=== PATIENT | male | born 1990 | race Hispanic/Latino ===

== ENCOUNTER 2020-03-20 16:22 | Emergency (ER) | payer OTHER ==
[2020-03-20] MEDS ORDERED: IBUPROFEN 600 MG TABLET ONE (17:41)
== END 2020-03-20 18:21 | disposition home or self-care (01) ==
LOC: EDH 16:22
DX: M54.5 Low back pain (principal); M54.6 Pain in thoracic spine; Z72.0 Tobacco use; V49.59XA Passenger injured in collision with other motor vehicles in traffic accident, initial encounter; Y93.89 Activity, other specified; Y92.89 Other specified places as the place of occurrence of the external cause; Y99.8 Other external cause status
CPT/HCPCS: 71045; 72100

== ENCOUNTER 2022-08-16 19:26 | Emergency (ER) | payer OTHER | END 2022-08-16 19:44 | disposition left against medical advice (07) | LOC: EDH 19:26 | DX: R06.02 Shortness of breath (principal); I10 Essential (primary) hypertension; R42 Dizziness and giddiness; Z53.21 Procedure and treatment not carried out due to patient leaving prior to being seen by health care provider ==

== ENCOUNTER 2022-10-26 04:59 | Emergency (ER) | payer OTHER ==
[~2022-10-26] VITALS: Ht 162.6 cm; Wt 75.3 kg
[2022-10-26 05:23] LABS: APPEARANCE,URINE CLEAR (CLEAR); BILIRUBIN,URINE NEGATIVE (NEGATIVE); COLOR,URINE LIGHT-YELLOW (YELLOW); GLUCOSE, URINE (UA) 300 mg/dL (NEGATIVE); KETONES,URINE 5 mg/dL (NEGATIVE); LEUKOCYTE ESTERASE ,URINE NEGATIVE Leu/uL (NEGATIVE); NITRATE,URINE NEGATIVE (NEGATIVE); OCCULT BLOOD,URINE SMALL (NEGATIVE); PROTEIN,URINE 10 mg/dL (NEGATIVE); UROBILINOGEN,URINE 0.2 mg/dL (0.2-1.0)
[2022-10-26 05:25] LABS: MUCUS,URINE FEW LPF (None Seen); WBC,URINE 0-1 /HPF (0-1)
[2022-10-26] MEDS ORDERED: 0.9%NACL 1000ML 1,000 ML IV ONE (05:30)
[2022-10-26 06:12] LABS: BASOPHILS % (AUTO) 0.1 % (0.0-5.0); HEMATOCRIT 43.1 % (42-54); LYMPHOCYTES % (AUTO) 6.9 % (21.0-51.0); MEAN CORPUSCULAR HEMOGLOBIN 33.8 pg (27.0-33.0); MEAN CORPUSCULAR HGB CONC 33.4 g/dL (32.0-36.0); MEAN CORPUSCULAR VOLUME 101.2 fL (79-99); MONOCYTES % (AUTO) 2.3 % (3.0-13.0); NEUTROPHILS % (AUTO) 90.2 % (40.0-77.0); PLATELET COUNT (AUTO) 148 K/uL (130-400); RED BLOOD CELL COUNT(AUTO) 4.26 MIL/uL (4.50-6.20); RED CELL DISTRIBUTION WIDTH 12.9 % (11.0-15.5); WHITE BLOOD COUNT (AUTO) 10.4 K/uL (4.8-10.8)
[2022-10-26 06:27] LABS: CREATININE 0.7 mg/dL (0.5-1.5); POTASSIUM 3.6 mmol/L (3.5-5.1); TOTAL PROTEIN, SERUM 7.3 g/dL (6.0-8.3)
[2022-10-26 11:03] VITALS: BP 114/56
[2022-10-26] MEDS ORDERED: IBUP-2070 PO (12:31)
[2022-10-26] MEDS ORDERED: DOXY-252 PO (12:31)
== END 2022-10-26 12:50 | disposition home or self-care (01) ==
LOC: EDH 04:59
DX: A01.00 Typhoid fever, unspecified (principal); Z98.890 Other specified postprocedural states; Z20.822 Contact with and (suspected) exposure to COVID-19
CPT/HCPCS: 99284; 96360; 71045; 87635; 80053; 85025; 87804 ×2; 86000; 81001; 36415; C9803

== ENCOUNTER 2024-10-12 14:55 | Emergency (ER) | payer OTHER ==
[~2024-10-12] VITALS: Ht 162.6 cm; Wt 60.3 kg
[~2024-10-12 14:55] MED LIST: DOXY-252 PO; IBUP-2070 PO
[2024-10-12] MEDS: 0.9%NACL 1000ML 1,000 ML IV ONE (15:27)
[2024-10-12 15:29] LABS: BASOPHILS # (AUTO) 0.02 K/uL (0.00-0.20); BASOPHILS % (AUTO) 0.1 % (0.0-5.0); HEMATOCRIT 38.2 % (42-54); IMMATURE GRANULOCYTE ABSOLUTE 0.06 K/uL (0-1); LYMPHOCYTES # (AUTO) 1.3 K/uL (1.0-4.8); LYMPHOCYTES % (AUTO) 8.2 % (21.0-51.0); MEAN CORPUSCULAR HEMOGLOBIN 33.2 pg (27.0-33.0); MEAN CORPUSCULAR HGB CONC 33.8 g/dL (32.0-36.0); MEAN CORPUSCULAR VOLUME 98.2 fL (79-99); MONOCYTES # (AUTO) 1.1 K/uL (0.1-1.0); MONOCYTES % (AUTO) 7.4 % (3.0-13.0); NEUTROPHILS # (AUTO) 12.9 K/uL (1.8-7.7); NEUTROPHILS % (AUTO) 83.9 % (40.0-77.0); PLATELET COUNT (AUTO) 107 K/uL (130-400); RED BLOOD CELL COUNT(AUTO) 3.89 MIL/uL (4.50-6.20); RED CELL DISTRIBUTION WIDTH 14.1 % (11.0-15.5); WHITE BLOOD COUNT (AUTO) 15.3 K/uL (4.8-10.8)
[2024-10-12 15:36] LABS: CREATININE 0.8 mg/dL (0.5-1.3); POTASSIUM 3.5 mmol/L (3.5-5.1)
[2024-10-12 15:37] LABS: INR 1.36 (0.85-1.15)
[2024-10-12 15:38] LABS: PARTIAL THROMBOPLASTIN TIME 31.3 SEC (26.3-35.5)
[2024-10-12 15:40] LABS: ALBUMIN 3.4 g/dL (3.5-5.0); BILIRUBIN,DIRECT 0.2 mg/dL (0.0-0.3); BILIRUBIN,TOTAL 0.5 mg/dL (0.2-1.0); TOTAL PROTEIN, SERUM 7.2 g/dL (6.0-8.3)
--- NOTE | 2024-10-12 15:44 | HMCIMG ---
Exam Type: US ABDOMINAL RUQ\E\LTD Clinical Information: RUQ bd pain r/o acute choley Comparison: None Findings: The liver shows coarse echotexture and this is suggestive of chronic liver disease.. The liver measures less than 16 cm in length. Doppler evaluation shows patent portal and hepatic veins. The gallbladder shows no significant abnormalities. Specifically, no calculi are seen. The gallbladder wall thickness is 4 mm. This is slightly thickened possibly due to liver dysfunction. No bile duct dilatation is noted. The common bile duct measures 4 mm. The right kidney measures 9.6 x 4 cm. The right kidney is normal in size and echogenicity. No hydronephrosis or renal calculi are seen. There are no renal masses. The pancreas is suboptimally visualized. IMPRESSION: Findings serial axial chronic liver disease.
[2024-10-12 15:46] LABS: APPEARANCE,URINE CLEAR (CLEAR); BILIRUBIN,URINE NEGATIVE (NEGATIVE); COLOR,URINE YELLOW (YELLOW); GLUCOSE, URINE (UA) NEGATIVE (NEGATIVE); KETONES,URINE NEGATIVE (NEGATIVE); LEUKOCYTE ESTERASE ,URINE NEGATIVE Leu/uL (NEGATIVE); NITRATE,URINE NEGATIVE (NEGATIVE); OCCULT BLOOD,URINE SMALL (NEGATIVE); PH,URINE 6.5 (5.0-8.0); PROTEIN,URINE 20 mg/dL (NEGATIVE); UROBILINOGEN,URINE 6 mg/dL (0.2-1.0)
[2024-10-12 15:48] LABS: ADD UA MICROSCOPIC YES
[2024-10-12 15:49] LABS: MUCUS,URINE RARE LPF (None Seen); RBC,URINE 26-50 /HPF (0-1); SQUAMOUS EPITHELIAL CELL,UR RARE /HPF (0-2)
[2024-10-12] MEDS: morPHINE 2 MG SYG IVP ONE (16:11)
[2024-10-12] MEDS: ondanSETRON 4MG INJ IVP ONE (16:11)
[2024-10-12] MEDS: ketOROlac 15MG/ML VIAL (15MG/ML) IV ONE (17:23)
--- NOTE | 2024-10-12 17:31 | ERN ---
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 The patient was recently started on penicillamine Allergies: Coded Allergies: No Known Drug Allergies (Unverified Allergy, Unknown, 08/16/22) Home Meds Active Scripts Ibuprofen (Ibuprofen) 600 Mg Tablet, 600 MG PO Q6H PRN for PAIN for 7 Days, #30 TAB Prov:ARA JORDAN MD 10/26/22 Doxycycline Hyclate (Doxycycline Hyclate) 100 Mg Tablet.dr, 100 MG PO BID for 10 Days, #20 TAB Prov:ARA JORDAN MD 10/26/22 Past Medical History Past Medical History: No Pertinent History Medical History Other: Back pain, jonathan's disease Past Surgical History: None Surgical History Other: DENIES Additional History Comments: Patient states she has 3 herniated disks Family History Family History: Negative Social History Social History: Smokers, Lives with family ROS Dictation CONSTITUTIONAL: Negative except for HPI HEAD/FACE: Negative except for HPI EENT: Negative except for HPI RESPIRATORY: Negative except for HPI GASTROINTESTINAL/ABDOMINAL: Negative except for HPI GENITOURINARY: Negative except for HPI MUSCULOSKELETAL: Negative except for HPI INTEGUMENTARY: Negative except for HPI NEUROLOGICAL/PSYCH: Negative except for HPI HEMATOLOGIC/LYMPHATIC: Negative except for HPI All Systems Negative, Except as noted above. 13 point review of systems assessed and all negative except for above. Physical Exam Physical Exam Dictation Vital Signs reviewed General Appearance: Alert, oriented x 3, no acute distress, well developed, nourished. Head and Face: non-traumatic. Eyes: PERRL, pink conjunctivas, eyelid no trauma, anterior chamber with arcus senilis. Ears: Pinnas intact and no signs of trauma or erythema ear canals clear and no discharge TM no erythema Nose: No discharge, no bleeding. Oropharynx: Mouth normal, tongue pink, pharynx clear,no erythema, tonsils no exudates, no abscesses noted, mucous membrane moist Neck: Supple, non-tender, no thyromegaly, no masses, no JVD, no bruits Breast:Deferred Chest:No tenderness, no crepitus, no paradoxical movement, no retractions Lungs:Clear, well-ventilated, symmetric, no rales, no wheezing, no rhonchi, no stridor, good breath sounds bilaterally Heart: Regular rate, regular rhythm, no murmur, no gallops Vascular: no peripheral edema, Abdomen: Soft, positive bowel sounds, nondistended, no guarding, nontender, no rebound, no masses no hepatomegaly, no splenomegaly, no Ford's sign, no hernias. Rectal: Deferred Genital: Deferred Neurological: Normal speech, motor function intact, sensory function intact Musculoskeletal: Neck nontender, full range of motion, back nontender, full ran ge of motion, Extremities: nontender, full range of motion Skin: Color pink, dry, no turgor, no rash, no lacerations, no abrasions, no contusions. Lymphatic: Deferred Results Laboratory and Microbiology Lab and Micro Result Laboratory Tests Test 10/12/24 15:10 White Blood Count 15.3 K/uL (4.8-10.8) H Red Blood Count 3.89 MIL/uL (4.50-6.20) L Hemoglobin 12.9 g/dL (14.0-18.0) L Hematocrit 38.2 % (42-54) L Mean Corpuscular Volume 98.2 fL (79-99) Mean Corpuscular Hemoglobin 33.2 pg (27.0-33.0) H Mean Corpuscular Hemoglobin Concent 33.8 g/dL (32.0-36.0) Red Cell Distribution Width 14.1 % (11.0-15.5) Platelet Count 107 K/uL (130-400) L Mean Platelet Volume 10.9 fL (7.5-10.5) H Immature Granulocyte % (Auto) 0.4 % (0-1) Neutrophils (%) (Auto) 83.9 % (40.0-77.0) H Lymphocytes (%) (Auto) 8.2 % (21.0-51.0) L Monocytes (%) (Auto) 7.4 % (3.0-13.0) Eosinophils (%) (Auto) 0.0 % (0.0-8.0) Basophils (%) (Auto) 0.1 % (0.0-5.0) Neutrophils # (Auto) 12.9 K/uL (1.8-7.7) H Lymphocytes # (Auto) 1.3 K/uL (1.0-4.8) Monocytes # (Auto) 1.1 K/uL (0.1-1.0) H Eosinophils # (Auto) 0.00 K/uL (0.00-0.70) Basophils # (Auto) 0.02 K/uL (0.00-0.20) Absolute Immature Granulocyte (auto 0.06 K/uL (0-1) Nucleated Red Blood Cells 0.0 % (0.0-0.19) White Cell Morphology Comment See comments Prothrombin Time 14.0 SEC (9.6-11.6) H Prothromb Time International Ratio 1.36 (0.85-1.15) H Activated Partial Thromboplast Time 31.3 SEC (26.3-35.5) Urine Color YELLOW (YELLOW) Urine Appearance CLEAR (CLEAR) Urine pH 6.5 (5.0-8.0) Urine Specific [place] 1.027 (1.001-1.031) Urine Protein 20 mg/dL (NEGATIVE) H Urine Glucose (UA) NEGATIVE mg/dL (NEGATIVE) Urine Ketones NEGATIVE mg/dL (NEGATIVE) Urine Occult Blood SMALL (NEGATIVE) H Urine Nitrate NEGATIVE (NEGATIVE) Urine Bilirubin NEGATIVE mg/dL (NEGATIVE) Urine Urobilinogen 6 mg/dL (0.2-1.0) H Urine Leukocyte Esterase NEGATIVE Leni/uL Urine RBC 26-50 /HPF (0-1) H Urine WBC 2-5 /HPF (0-1) H Urine Squamous Epithelial Cells RARE /HPF (0-2) Urine Bacteria None /HPF (None Seen) Sodium Level 137 mmol/L (136-145) Potassium Level 3.5 mmol/L (3.5-5.1) Chloride Level 103 mmol/L (101-111) Carbon Dioxide Level 29 mmol/L (21-32) Blood Urea Nitrogen 11 mg/dL (7-18) Creatinine 0.8 mg/dL (0.5-1.3) Glomerular Filtration Rate Calc 118 mL/min (>90) Random Glucose 86 mg/dL (70-105) Total Calcium 9.0 mg/dL (8.5-10.1) Total Bilirubin 0.5 mg/dL (0.2-1.0) Direct Bilirubin 0.2 mg/dL (0.0-0.3) Aspartate Amino Transf (AST/SGOT) 36 U/L (10-37) Alanine Aminotransferase (ALT/SGPT) 53 U/L (12-78) Alkaline Phosphatase 110 U/L (50-136) Total Protein 7.2 g/dL (6.0-8.3) Albumin 3.4 g/dL (3.5-5.0) L Lipase 32 U/L (16-77) ED Course Orders Procedure Category Date Status Time Cbc With Differential LAB 10/12/24 Complete 15:11 Basic Metabolic Panel LAB 10/12/24 Complete 15:11 Hepatic Function Panel LAB 10/12/24 Complete 15:11 Lipase LAB 10/12/24 Complete 15:11 Pt And Ptt LAB 10/12/24 Complete 15:11 Us Abdominal Ruq\Ltd US 10/12/24 Resulted 15:11 0.9%Nacl 1000ml (Ns PHA 10/12/24 Complete 1000ml) 15:30 Urinalysis Profile LAB 10/12/24 Complete 15:33 Morphine 2mg Syg PHA 10/12/24 Complete (Morphine 2mg Syg) 16:00 Ondansetron 4mg Inj PHA 10/12/24 Complete (Zofran 4mg Inj) 16:00 Ketorolac PHA 10/12/24 Complete Tromethamine 15mg/Ml 17:00 Current Medications Medications (Trade) Dose Ordered Sig/Rodger Route PRN Reason Start Time Stop Time Status Last Admin Dose Admin Ketorolac Tromethamine (toRADol) 15 mg ONCE ONCE IV 10/12/24 17:00 10/12/24 17:02 DC 10/12/24 17:23 Morphine Sulfate (morPHINE 2MG SYG) 2 mg ONCE ONCE IVP 10/12/24 16:00 10/12/24 16:01 DC 10/12/24 16:11 Ondansetron HCl (zoFRAN 4MG INJ) 4 mg ONCE ONCE IVP 10/12/24 16:00 10/12/24 16:01 DC 10/12/24 16:11 Sodium Chloride 1,000 ml @ 0 mls/hr ONCE ONCE IV 10/12/24 15:30 10/12/24 15:31 DC 10/12/24 15:27 Vital Signs Date Time Temp Pulse Resp B/P (MAP) Pulse Ox O2 Delivery O2 Flow Rate FiO2 10/12/24 15:20 98.6 62 22 82/39 98 Room Air* 0 21 10/12/24 14:56 97.7 70 18 79/64 96 Room Air 0 DX & DISP Disposition: Discharge Departure Impression: Primary Impression: Right upper quadrant abdominal pain Additional Impression: Wilsons disease Condition: Stable Referrals: SELF,REFERRAL (PCP) I have reviewed the case, and I agree with, Diagnosis and Plan I performed the substantive portion of the visit. I have reviewed and personally made and approve the management plan that is documented in the note by myself or the JESUS. I acknowledge for responsibility for the patient's management plan. KEILA MENDENHALL Oct 12, 2024 17:31
[2024-10-12 17:42] VITALS: BP 105/67; PULSE 60; RESP 16; TEMP 98.1; O2SAT 98
== END 2024-10-12 17:54 | disposition home or self-care (01) ==
LOC: EDH 14:55
DX: R10.11 Right upper quadrant pain (principal); E83.01 Wilson's disease; F17.200 Nicotine dependence, unspecified, uncomplicated
CPT/HCPCS: 99285; 96374; 76705; 96361; 96375; 80076; 80048; 83690; 85025; 85610; 85730; 81001; 36415; J1885; J2270; J7030; J2405

== ENCOUNTER 2024-10-26 18:24 | Emergency (ER) | payer BC, OTHER ==
[~2024-10-26] VITALS: Ht 162.6 cm; Wt 60.3 kg
--- NOTE | 2024-10-26 18:39 | ERN ---
ED Note History of Present Illness Stated Complaint: FEVER, CONGESTION X 4 DAYS Chief Complaint: Fever Time Seen by MD: 18:37 Dictation: PATIENT IS A 34-YEAR-OLD MALE COMING IN TODAY WITH COMPLAINTS OF FEVER CHILLS RIGHT LOWER QUADRANT PAIN WITH NAUSEA FOR 3-4 DAYS. HE ALSO STATES HE HAS HAD A COUGH NONPRODUCTIVE AND HAS NOT FELT GOOD. NO VOMITING NO DIARRHEA. 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 PATIENT TOOK TAMIFLU LAST NIGHT FOR HIS FEVER, HAS TAKEN NOTHING TODAY FOR THE FEVER Allergies: Coded Allergies: No Known Drug Allergies (Unverified Allergy, Unknown, 08/16/22) Home Meds Active Scripts Albuterol Sulfate (Ventolin Hfa/Proventil Hfa/Proair Hfa) 90 Mcg Puff, 2 PUFF IH Q4H for WHEEZING, #1 INHALER 0 Refills Prov:KRISTOPHER ERNANDEZ NP 10/26/24 Levofloxacin (Levaquin 750Mg Tabs) 750 Mg Tablet, 1 TAB PO DAILY for 10 Days, #10 TAB 0 Refills Prov:KRISTOPHER ERNANDEZ NP 10/26/24 Ibuprofen (Ibuprofen) 600 Mg Tablet, 600 MG PO Q6H PRN for PAIN for 7 Days, #30 TAB Prov:ARA JORDAN MD 10/26/22 Doxycycline Hyclate (Doxycycline Hyclate) 100 Mg Tablet.dr, 100 MG PO BID for 10 Days, #20 TAB Prov:ARA JORDAN MD 10/26/22 Past Medical History Past Medical History: Other Additional Past Medical Hx: Back pain, tyron's disease Surgical History: None Surgical History Other: DENIES Additional History Comments: Patient states she has 3 herniated disks Family History: Negative Social History: Smokers, Lives with family RN Note Reviewed/Agreed w/PFSH: Yes Review of System Dictation CONSTITUTIONAL: NEGATIVE EXCEPT FOR HPI FEVER CHILLS HEAD/FACE: NEGATIVE EXCEPT FOR HPI EENT: NEGATIVE EXCEPT FOR HPI SORE THROAT RESPIRATORY: NEGATIVE EXCEPT FOR HPI COUGH GASTROINTESTINAL/ABDOMINAL: NEGATIVE EXCEPT FOR HPI RIGHT LOWER QUADRANT PAIN WITH NAUSEA GENITOURINARY: NEGATIVE EXCEPT FOR HPI MUSCULOSKELETAL: NEGATIVE EXCEPT FOR HPI INTEGUMENTARY: NEGATIVE EXCEPT FOR HPI NEUROLOGICAL/PSYCH: NEGATIVE EXCEPT FOR HPI HEMATOLOGIC/LYMPHATIC: NEGATIVE EXCEPT FOR HPI ALL SYSTEMS NEGATIVE, EXCEPT NOTED ABOVE. 13 POINT REVIEW OF SYSTEMS ASSESSED AND ALL NEGATIVE EXCEPT FOR ABOVE. Initial Vital Sign VS Vital Signs Date Time Temp Pulse Resp B/P (MAP) Pulse Ox O2 Delivery O2 Flow Rate FiO2 10/26/24 18:26 102.9 143 22 71/53 98 Room Air 0 10/26/24 19:03 21 Physical Exam Dictation VITAL SIGNS REVIEWED GENERAL APPEARANCE: ALERT, ORIENTED X 3, MILD ACUTE DISTRESS, WELL DEVELOPED, NOURISHED. HEAD AND FACE: NON-TRAUMATIC. EYES: PERRL, PINK CONJUNCTIVAS, EYELID NO TRAUMA, ANTERIOR CHAMBER WITH ARCUS SENILIS. EARS: PINNAS INTACT AND NO SIGNS OF TRAUMA OR ERYTHEMA EAR CANALS CLEAR AND NO DISCHARGE TM NO ERYTHEMA NOSE: NO DISCHARGE, NO BLEEDING. OROPHARYNX: MOUTH NORMAL, TONGUE PINK, PHARYNX CLEAR, MILD PHARYNGEAL ERYTHEMA, TONSILS NO EXUDATES, NO ABSCESSES NOTED, MUCOUS MEMBRANE MOIST MIDLINE, VOICE IS CLEAR NECK: SUPPLE, NON-TENDER, NO THYROMEGALY, NO MASSES, NO JVD, NO BRUITS BREAST:DEFERRED CHEST:NO TENDERNESS, NO CREPITUS, NO PARADOXICAL MOVEMENT, NO RETRACTIONS LUNGS:CLEAR, WELL-VENTILATED, SYMMETRIC, NO RALES, NO WHEEZING, NO RHONCHI, NO STRIDOR, GOOD BREATH SOUNDS BILATERALLY HEART: REGULAR RATE, REGULAR RHYTHM, NO MURMUR, NO GALLOPS VASCULAR: NO PERIPHERAL EDEMA, ABDOMEN: SOFT, POSITIVE BOWEL SOUNDS, NONDISTENDED, NO GUARDING, RIGHT LOWER QUADRANT PAIN WITH REBOUND TENDERNESS. RECTAL: DEFERRED GENITAL: DEFERRED NEUROLOGICAL: NORMAL SPEECH, MOTOR FUNCTION INTACT, SENSORY FUNCTION INTACT MUSCULOSKELETAL: NECK NONTENDER, FULL RANGE OF MOTION, BACK NONTENDER, FULL RANGE OF MOTION, EXTREMITIES: NONTENDER, FULL RANGE OF MOTION SKIN: COLOR PINK, DRY, NO TURGOR, NO RASH, NO LACERATIONS, NO ABRASIONS, NO CONTUSIONS. LYMPHATIC: DEFERRED Results (Laboratory/Radiology) Laboratory/Radiology Laboratory Tests Test 10/26/24 18:23 10/26/24 18:40 10/26/24 19:29 Influenza Type A Antigen Negative For Type A Influenza Type B Antigen Negative For Type B SARS-CoV-2 Antigen (Rapid) PRESUMPTIVE NEGATIVE Group A Streptococcus Rapid negative (NEGATIVE) White Blood Count 8.7 K/uL (4.8-10.8) Red Blood Count 4.41 MIL/uL (4.50-6.20) L Hemoglobin 14.6 g/dL (14.0-18.0) Hematocrit 43.3 % (42-54) Mean Corpuscular Volume 98.2 fL (79-99) Mean Corpuscular Hemoglobin 33.1 pg (27.0-33.0) H Mean Corpuscular Hemoglobin Concent 33.7 g/dL (32.0-36.0) Red Cell Distribution Width 13.4 % (11.0-15.5) Platelet Count 105 K/uL (130-400) L Mean Platelet Volume 10.7 fL (7.5-10.5) H Immature Granulocyte % (Auto) 0.5 % (0-1) Neutrophils (%) (Auto) 87.6 % (40.0-77.0) H Lymphocytes (%) (Auto) 6.4 % (21.0-51.0) L Monocytes (%) (Auto) 5.2 % (3.0-13.0) Eosinophils (%) (Auto) 0.1 % (0.0-8.0) Basophils (%) (Auto) 0.2 % (0.0-5.0) Neutrophils # (Auto) 7.6 K/uL (1.8-7.7) Lymphocytes # (Auto) 0.6 K/uL (1.0-4.8) L Monocytes # (Auto) 0.5 K/uL (0.1-1.0) Eosinophils # (Auto) 0.01 K/uL (0.00-0.70) Basophils # (Auto) 0.02 K/uL (0.00-0.20) Absolute Immature Granulocyte (auto 0.04 K/uL (0-1) Nucleated Red Blood Cells 0.0 % (0.0-0.19) White Cell Morphology Comment See comments Sodium Level 134 mmol/L (136-145) L Potassium Level 3.5 mmol/L (3.5-5.1) Chloride Level 99 mmol/L (101-111) L Carbon Dioxide Level 31 mmol/L (21-32) Blood Urea Nitrogen 14 mg/dL (7-18) Creatinine 0.8 mg/dL (0.5-1.3) Glomerular Filtration Rate Calc 118 mL/min (>90) Random Glucose 145 mg/dL (70-105) H Lactic Acid Level 2.3 mmol/L (0.8-2.5) Total Calcium 8.6 mg/dL (8.5-10.1) Urine Color LIGHT-YELLOW (YELLOW) Urine Appearance CLEAR (CLEAR) Urine pH 7.0 (5.0-8.0) Urine Specific [place] 1.017 (1.001-1.031) Urine Protein NEGATIVE mg/dL (NEGATIVE) Urine Glucose (UA) NEGATIVE mg/dL (NEGATIVE) Urine Ketones NEGATIVE mg/dL (NEGATIVE) Urine Occult Blood MODERATE (NEGATIVE) H Urine Nitrate NEGATIVE (NEGATIVE) Urine Bilirubin NEGATIVE mg/dL (NEGATIVE) Urine Urobilinogen 3 mg/dL (0.2-1.0) H Urine Leukocyte Esterase NEGATIVE Leni/uL Urine RBC 11-25 /HPF (0-1) H Urine WBC 0-1 /HPF (0-1) Urine Bacteria None /HPF (None Seen) CHEST 1VW HISTORY: Shortness of breath COMPARISON: 10/26/2022 FINDINGS: A frontal projection of the chest was obtained. Prominent interstitial markings are seen with possible superimposed infiltrates. The heart is borderline enlarged. Degenerative changes are seen. Prominent interstitial markings are seen. No evidence of aortic calcification is seen. IMPRESSION: 1. Prominent interstitial markings are seen with possible superimposed infiltrates. Labs Reviewed?: Yes ED Course ED Course Orders Procedure Category Date Status Time Covid19 (Sars Antigen LAB 10/26/24 Complete Rapid) 18:34 Influenza Type A & B, LAB 10/26/24 Complete Rapid 18:34 Rapid (Group A Strep) LAB 10/26/24 Complete 18:34 Cbc With Differential LAB 10/26/24 Complete 18:34 Blood Cult MENA 10/26/24 In Process 18:34 Urinalysis Profile LAB 10/26/24 Complete 18:34 0.9%Nacl 1000ml (Ns PHA 10/26/24 In Process 1000ml) 19:00 Lactic Acid LAB 10/26/24 Complete 18:34 Basic Metabolic Panel LAB 10/26/24 Complete 18:34 Ketorolac PHA 10/26/24 Complete Tromethamine 30mg/Ml 19:00 Chest 1vw RAD 10/26/24 Resulted 18:37 Ceftriaxone 1g Vial PHA 10/26/24 Complete (Rocephine 1g Inj) 19:30 Iohexol (Omnipaque) PHA 10/26/24 Complete 19:30 Us Abd Limited/Abd US 10/26/24 Resulted Wall 19:49 Azithromycin PHA 10/26/24 Complete (Zithromax) 21:00 Current Medications Medications (Trade) Dose Ordered Sig/Rodger Route PRN Reason Start Time Stop Time Status Last Admin Dose Admin Azithromycin (Zithromax) 500 mg ONCE ONCE PO 10/26/24 21:00 10/26/24 21:02 DC Ceftriaxone Sodium (ROCEphine 1G INJ) 1 gm ONCE ONCE IVP 10/26/24 19:30 10/26/24 19:31 DC 10/26/24 20:36 Iohexol (Omnipaque) 35,000 mg STK-MED ONCE IV 10/26/24 19:30 10/26/24 19:30 DC Ketorolac Tromethamine (toRADol) 30 mg ONCE ONCE IVP 10/26/24 19:00 10/26/24 19:01 DC 10/26/24 19:06 Sodium Chloride 1,809 ml @ 603 mls/hr ONCE ONCE IV 10/26/24 19:00 10/26/24 21:59 10/26/24 18:51 Vital Signs Date Time Temp Pulse Resp B/P (MAP) Pulse Ox O2 Delivery O2 Flow Rate FiO2 10/26/24 20:43 100.9 101 22 110/62 98 Room Air* 0 21 10/26/24 19:03 101.8 109 25 106/66 97 Room Air* 0 21 10/26/24 18:26 102.9 143 22 71/53 98 Room Air 0 2100/PATIENT TREATED FOR BRONCHIAL PNEUMONIA HAS RECEIVED ROCEPHIN AND AZITHROMYCIN 500 MG P.O.. SPOKE TO PATIENT AT LENGTH AND HE DOES NOT WANT TO STAY IN THE HOSPITAL. HE HAS A CIGAR SMOKER AND STATES HE WILL STOP FOR THE NEXT 10 DAYS. I ENCOURAGED HIM TO STOP FOR EVER BUT HE SAID HE COULD DO THIS FOR 10 DAYS. I COULD DISCHARGE HIM HOME WITH LEVAQUIN AND ALBUTEROL INHALER WITH FOLLOW UP WITH HIS DOCTOR NEXT 2-3 DAYS. HIS [id number] IS AT THE BEDSIDE AND SHE AGREED TO BRING HIM BACK IF THERE WAS ANY OTHER PROBLEM. PATIENT AGAIN STATED HE DID NOT WANT TO STAY IN THE HOSPITAL Medical Decision Making MDM MDM: DIFFERENTIAL DIAGNOSIS: PNEUMONIA/BRONCHITIS/INFLUENZA/SARS/INFLUENZA/ABDOMINAL PAIN/APPENDICITIS/DIVERTICULITIS/SEPSIS/UTI/PYELONEPHRITIS RATIONALE: TESTS CONSIDERED AND ORDERED SECONDARY TO SHARED DECISION MAKING I NCLUDE: RADIOLOGY/LABS PREVIOUS OUTSIDE RECORDS REVIEWED: OLD ER VISITS. RISK OF COMPLICATION AND/OR MORBIDITY OR MORTALITY OF PATIENT MANAGEMENT: NONE MEDICATIONS-PER MEDICATION RECONCILIATION NEED FOR HOSPITALIZATION: PATIENT DOES NOT MEET CRITERIA FOR HOSPITALIZATION. PATIENT REFUSED HOSPITALIZATION NEED FOR EMERGENCY MAJOR/MINOR SURGERY: NO THERE ARE NO SOCIAL CONCERNS WITH THIS PATIENT. VAPES AND CIGAR SMOKER PRESCRIPTION DRUG MANAGEMENT LEVAQUIN/ALBUTEROL PRESCRIPTIONS WILL INCLUDE SYMPTOMATIC CARE PATIENT'S PRIOR EXTERNAL MEDICAL RECORDS FROM OTHER ER VISITS WERE REVIEWED BY ME INDICATED. PRIOR TESTING AND RESULTS FROM PREVIOUS VISITS WERE REVIEWED. PRIOR TESTS WERE TAKEN INTO ACCOUNT WITH MEDICAL DECISION MAKING AND RESOURCE UTILIZATION, INDEPENDENT HISTORIAN/HISTORIANS WERE USED TO OBTAIN COMPLETE MEDICAL HISTORY. I INDEPENDENTLY INTERPRETED THE TEST THAT WERE PERFORMED, RESULTS WERE REVIEWED BY ME AND CONSIDERED FINDINGS ON RADIOLOGY IF ORDERED. MEDICAL MANAGEMENT AND EXAMINATION INTERPRETATION DISCUSSIONS WERE HAD BY ME WITH OTHER QUALIFIED HEALTHCARE PROFESSIONALS INDICATED FOR THE PATIENT'S CARE. DX & DISP Disposition: Discharge Departure Impression: Primary Impression: Bronchial pneumonia Additional Impressions: Hyponatremia, Hypochloremia, Hyperglycemia, Sepsis Condition: Stable Scripts Albuterol Sulfate (Ventolin Hfa/Proventil Hfa/Proair Hfa) 90 Mcg Puff 2 PUFF IH Q4H for WHEEZING, #1 INHALER 0 Refills Prov: KRISTOPHER ERNANDEZ SUPERVISOR FERTILIZER 10/26/24 Levofloxacin (Levaquin 750Mg Tabs) 750 Mg Tablet 1 TAB PO DAILY for 10 Days, #10 TAB 0 Refills Prov: KRISTOPHER ERNANDEZ SUPERVISOR FERTILIZER 10/26/24 Additional Instructions: FOLLOW-UP WITH PRIMARY CARE PROVIDER IN 1 TO 2 DAYS. TAKE MEDICATIONS DIRECTED HERE IN THE EMERGENCY ROOM. OKAY TO CONTINUE HOME MEDICATIONS UNLESS OTHERWISE DISCUSSED DURING YOUR VISIT IN THE EMERGENCY ROOM TODAY. RETURN TO YOUR NEAREST EMERGENCY ROOM IF SYMPTOMS WORSEN OR IF THERE IS NO IMPROVEMENT. CALL 911 IF YOU NEED IMMEDIATE ASSISTANCE. TAKE TYLENOL OR MOTRIN [id number] NEEDED AND IF NO CONTRAINDICATIONS ARE PRESENT. INCREASE ORAL HYDRATION. A WOUND CULTURE OR URINE CULTURE WAS ORDERED HERE IN THE EMERGENCY ROOM DEPARTMENT PLEASE FOLLOW-UP WITH PRIMARY CARE PROVIDER AND ADVISE THEM TO GET REPEAT PORTS FROM OUR FACILITY. IF YOU HAD ANY ANDREW WRAP/SPLINTS THAT WERE APPLIED HERE, PLEASE DO NOT REMOVE THEM UNTIL YOU SEE YOUR PRIMARY CARE OR SPECIALTY. TAKE ANTIBIOTICS DIRECTED UNTIL GONE., USE ALBUTEROL INHALER EVERY 4 HOURS WHILE AWAKE FOR THE NEXT THREE DAYS. INCREASE YOUR FLUID INTAKE. STOPPED SMOK ING CIGARS AND VAPING. SEE YOUR PRIMARY CARE DOCTOR IN 1-2 DAY FOR FURTHER EVALUATION AND MANAGEMENT. Referrals: SELF,REFERRAL (PCP) Time of Disposition: 21:06 I have reviewed the case, and I agree with, Diagnosis and Plan KRISTOPHER ERNANDEZ NP Oct 26, 2024 18:39
[2024-10-26] MEDS: [UNRECOGNIZED DRUG - OTHER] IV ONE (18:51)
[2024-10-26 18:54] LABS: BASOPHILS # (AUTO) 0.02 K/uL (0.00-0.20); BASOPHILS % (AUTO) 0.2 % (0.0-5.0); EOSINOPHILS # (AUTO) 0.01 K/uL (0.00-0.70); EOSINOPHILS % (AUTO) 0.1 % (0.0-8.0); HEMATOCRIT 43.3 % (42-54); IMMATURE GRANULOCYTE ABSOLUTE 0.04 K/uL (0-1); LYMPHOCYTES # (AUTO) 0.6 K/uL (1.0-4.8); LYMPHOCYTES % (AUTO) 6.4 % (21.0-51.0); MEAN CORPUSCULAR HEMOGLOBIN 33.1 pg (27.0-33.0); MEAN CORPUSCULAR HGB CONC 33.7 g/dL (32.0-36.0); MEAN CORPUSCULAR VOLUME 98.2 fL (79-99); MONOCYTES # (AUTO) 0.5 K/uL (0.1-1.0); MONOCYTES % (AUTO) 5.2 % (3.0-13.0); NEUTROPHILS # (AUTO) 7.6 K/uL (1.8-7.7); NEUTROPHILS % (AUTO) 87.6 % (40.0-77.0); PLATELET COUNT (AUTO) 105 K/uL (130-400); RED BLOOD CELL COUNT(AUTO) 4.41 MIL/uL (4.50-6.20); RED CELL DISTRIBUTION WIDTH 13.4 % (11.0-15.5); WHITE BLOOD COUNT (AUTO) 8.7 K/uL (4.8-10.8)
[2024-10-26 18:56] LABS: RAPID GROUP A STREP negative (NEGATIVE)
[2024-10-26 19:02] LABS: COVID19 (SARS ANTIGEN RAPID) PRESUMPTIVE NEGATIVE (NEGATIVE); INFLUENZA TYPE A Negative For Type A (NEGATIVE); INFLUENZA TYPE B Negative For Type B (NEGATIVE)
[2024-10-26] MEDS: ketOROlac 30MG VIAL (30MG/ML) IVP ONE (19:06)
[2024-10-26 19:12] LABS: CREATININE 0.8 mg/dL (0.5-1.3); POTASSIUM 3.5 mmol/L (3.5-5.1)
[2024-10-26] MEDS ORDERED: IOHEXOL 350 MG/ML 100ML INFUS..BTL IV ONE (19:30)
[2024-10-26 19:37] LABS: APPEARANCE,URINE CLEAR (CLEAR); BILIRUBIN,URINE NEGATIVE (NEGATIVE); COLOR,URINE LIGHT-YELLOW (YELLOW); GLUCOSE, URINE (UA) NEGATIVE (NEGATIVE); KETONES,URINE NEGATIVE (NEGATIVE); LEUKOCYTE ESTERASE ,URINE NEGATIVE Leu/uL (NEGATIVE); NITRATE,URINE NEGATIVE (NEGATIVE); OCCULT BLOOD,URINE MODERATE (NEGATIVE); PROTEIN,URINE NEGATIVE (NEGATIVE); UROBILINOGEN,URINE 3 mg/dL (0.2-1.0)
[2024-10-26 19:38] LABS: ADD UA MICROSCOPIC YES
[2024-10-26 19:39] LABS: MUCUS,URINE RARE LPF (None Seen); WBC,URINE 0-1 /HPF (0-1)
--- NOTE | 2024-10-26 19:55 | HMCIMG ---
CHEST 1VW HISTORY: Shortness of breath COMPARISON: 10/26/2022 FINDINGS: A frontal projection of the chest was obtained. Prominent interstitial markings are seen with possible superimposed infiltrates. The heart is borderline enlarged. Degenerative changes are seen. Prominent interstitial markings are seen. No evidence of aortic calcification is seen. IMPRESSION: 1. Prominent interstitial markings are seen with possible superimposed infiltrates.
[2024-10-26] MEDS: cefTRIAXone 1G VIAL IVP ONE (20:36)
--- NOTE | 2024-10-26 20:44 | HMCIMG ---
US ABD LIMITED/ABD WALL REASON: LOWER QUADRANT PAIN TENDERNESS. COMPARISON: None TECHNIQUE: Lower abdominal wall ultrasound study was performed. FINDINGS: No evidence of cystic or hypoechoic mass is seen. IMPRESSION: No evidence of cystic or hypoechoic masses seen in the lower abdomen.
[2024-10-26] MEDS ORDERED: LEVO750T68 PO (21:03)
[2024-10-26] MEDS ORDERED: ALBUHFA IH (21:03)
[2024-10-26] MEDS: AZITHROMYCIN 250 MG TABLET PO ONE (21:14)
[2024-10-26 21:31] VITALS: BP 112/65; PULSE 98; RESP 20; TEMP 99.5; O2SAT 97
[2024-10-28] MEDS ORDERED: ALBU18HF7 IH (03:12)
[2024-10-28] MEDS ORDERED: LEVO750T90 PO (03:12)
[2024-10-28] MEDS ORDERED: ZINC50TA64 PO (03:12)
[2024-10-28] MEDS ORDERED: PENI250C2 PO ×2 (03:12)
== END 2024-10-26 21:33 | disposition home or self-care (01) ==
LOC: EDH 18:24
DX: J18.0 Bronchopneumonia, unspecified organism (principal); E87.1 Hypo-osmolality and hyponatremia; A41.9 Sepsis, unspecified organism; E87.8 Other disorders of electrolyte and fluid balance, not elsewhere classified; F17.200 Nicotine dependence, unspecified, uncomplicated; Z20.822 Contact with and (suspected) exposure to COVID-19
CPT/HCPCS: 99284; 96365; 76705; 71045; 96361; 96375; 87426; 80048; 85025; 87040 ×2; 87880; 87804 ×2; 83605; 81001; 36415; J1885; J7030; J0696; Q9967